=== PATIENT | female | born 1995 | race Caucasian/White ===

== ENCOUNTER 2017-01-08 23:17 | Emergency (ER) | payer MEDICAID ==
[~2017-01-08] VITALS: Ht 167.6 cm; Wt 105.0 kg
[~2017-01-08 23:17] MED LIST: CYCL-36 PO; IBUP800T23 PO; LORTA5 PO; MIREIUD IU
[2017-01-08 23:18] VITALS: BP 143/79; PULSE 84; RESP 16; TEMP 98.7; O2SAT 98
--- NOTE | 2017-01-08 23:41 | PD ---
HPI Chief Complaint: Injury Time Seen by Provider: 23:41 Travel History International Travel<30 days: No Contact w/Intl Traveler<30days: No Traveled to known affect area: No History of Present Illness HPI 21-year-old right handed female presents to the emergency department for evaluation right hand pain. Patient states she was at setting cages when a baseball hit the dorsal aspect of her right hand. She reports 8 out of 10 right hand pain, exacerbated with flexion and extension of the digits. States that her hand is intermittently feeling numb in the distal digits. She denies any other symptoms at this time. PFSH Past Medical History Asthma: Yes Diminished Hearing: No : 2 Para: 2 Miscarriage: 0 : 0 Past Surgical History Section: Yes (X 2 ) Cholecystectomy: Yes Gynecologic Surgery: Yes ( X 1) Social History Alcohol Use: No Tobacco Use: No Substance Use: No Allergies-Medications (Allergen,Severity, Reaction): Coded Allergies: Citalopram (Verified Allergy, Mild, Hives, 01/08/17) Reported Meds & Prescriptions Reported Meds & Active Scripts Active Ibuprofen 800 Mg Tab 800 Mg PO Q8H PRN Reported Wellbutrin SR 12 HR (Bupropion HCl) 150 Mg Tab 150 Mg PO Q12HR Review of Systems Except as stated in HPI: all other systems reviewed are Neg Physical Exam Narrative GENERAL: Well-nourished, well-developed female patient no acute distress SKIN: Focused skin assessment warm/dry. Ecchymosis noted on the dorsal aspect of the right hand mostly between the first and second digits. HEAD: Normocephalic. EYES: No scleral icterus. No injection or drainage. NECK: Supple, trachea midline. No JVD or lymphadenopathy. CARDIOVASCULAR: Regular rate and rhythm without murmurs, gallops, or rubs. RESPIRATORY: Breath sounds equal bilaterally. No accessory muscle use. MUSCULOSKELETAL: No cyanosis, mild edema of the dorsal right hand. Patient is reluctant to make a fist and straighten however she is able to do this. Cap refill is within normal limits. Distal pulses are palpable. BACK: Nontender without obvious deformity. No CVA tenderness. Data Data Last Documented VS Vital Signs Date Time Temp Pulse Resp B/P Pulse Ox O2 Delivery O2 Flow Rate FiO2 01/08/17 23:18 98.7 84 16 143/79 98 Room Air Orders Hand, Complete ([id number]) (01/08/17 ) ^ Paul Bandage (01/09/17 00:26) MDM Medical Decision Making Medical Screen Exam Complete: Yes Emergency Medical Condition: Yes Medical Record Reviewed: Yes Differential Diagnosis Hand contusion versus sprain versus fracture versus dislocation Narrative Course 21-year-old female presents to emergency department for evaluation right hand pain after a cut crushed by a baseball at a batting cage. X-ray imaging shows no acute bony abnormality. Patient is placed in an Paul wrap and counseled on symptom control and care. She agrees to return immediately with any acute worsening symptoms. Diagnosis Primary Impression: Contusion of right hand including fingers Qualified Code: S60.221A - Contusion of right hand including fingers, initial encounter Referrals: Primary Care Physician Patient Instructions: Contusion in Adults (ED), General Instructions Departure Forms: Tests/Procedures, Work Release Enter return to work date: January 10, 2017 Additional Instructions: Ice and elevate to reduce pain and swelling PAUL wrap for compression and comfort Follow up with your primary care provider Return to ED with acute worsening of symptoms Med/Other Pt SpecificInfo: Prescription(s) given Scripts Ibuprofen 800 Mg Yrh123 Mg PO Q8H PRN (Pain/Inflammation) #30 TAB Ref 0 Prov:Porsche Hunt 01/09/17 Disposition: 01 DISCHARGE HOME Condition: Stable Porsche Hunt January 08, 2017 23:41
[2017-01-08] MEDS ORDERED: BUPR150CR PO (23:46)
--- NOTE | 2017-01-09 00:07 | RADRPT ---
EXAM DATE/TIME: 01/08/2017 23:58 [facility] COMPARISON: No previous studies available for comparison. INDICATIONS : Right hand pain from being hit with a baseball. MEDICAL HISTORY : None. SURGICAL HISTORY : None. ENCOUNTER: Initial ACUITY: 1 day PAIN SCORE: 10/10 LOCATION: Right hand FINDINGS: Three view examination of the right hand demonstrates no soft tissue swelling, dislocation, or fractu re. The carpal bones appear intact. The interphalangeal and metacarpophalangeal joints are intact. Bony mineralization is normal. CONCLUSION: Normal examination for a patient of this age. Lenard Villegas MD on January 09, 2017 at 0:05 Board Certified Radiologist. This report was verified electronically.
[2017-01-09] MEDS ORDERED: IBUP800T23 PO (00:28)
== END 2017-01-09 00:50 | disposition home or self-care (01) ==
LOC: NEPD 23:17
DX: S60.221A Contusion of right hand, initial encounter (principal); J45.909 Unspecified asthma, uncomplicated; W21.03XA Struck by baseball, initial encounter; Y93.64 Activity, baseball; Y92.39 Other specified sports and athletic area as the place of occurrence of the external cause; Y99.8 Other external cause status
CPT/HCPCS: 73130; 99283

== ENCOUNTER 2017-11-21 12:07 | Emergency (ER) | payer MEDICAID ==
[~2017-11-21] VITALS: Ht 167.6 cm; Wt 111.8 kg
[~2017-11-21 12:07] MED LIST changes: -CYCL-36 PO; -IBUP800T23 PO; +LEVO25TA4 PO; -LORTA5 PO; +METR-1 PO; -MIREIUD IU
[2017-11-21 12:25] VITALS: BP 162/70; PULSE 84; RESP 18; TEMP 98.4; O2SAT 100
[2017-11-21 13:34] LABS: AUTOMATED NEUTROPHIL # 5.4 TH/MM3 (1.8-7.7); BASOPHIL % 0.6 % (0.0-2.0); EOSINOPHIL # 0.1 TH/MM3 (0-0.4); EOSINOPHIL % 1.7 % (0.0-4.0); HEMATOCRIT 40.2 % (35.0-46.0); HEMOGLOBIN 13.7 GM/DL (11.6-15.3); LYMPH % 23.3 % (9.0-44.0); LYMPHOCYTE # 1.8 TH/MM3 (1.0-4.8); MEAN CELL VOLUME 84.2 FL (80.0-100.0); MEAN CORPUSCULAR HEMOGLOBIN 28.6 PG (27.0-34.0); MEAN PLATELET VOLUME 7.7 FL (7.0-11.0); MONO % 6.3 % (0.0-8.0); MONOCYTE # 0.5 TH/MM3 (0-0.9); NEUT % 68.1 % (16.0-70.0); PLATELET COUNT 234 TH/MM3 (150-450); RED BLOOD COUNT 4.77 MIL/MM3 (4.00-5.30); RED CELL DISTRIBUTION WIDTH 13.9 % (11.6-17.2); WHITE BLOOD COUNT 7.9 TH/MM3 (4.0-11.0)
[2017-11-21 13:57] LABS: BILIRUBIN, URINE NEG (NEG); BLOOD, URINE NEG (NEG); GLUCOSE,URINE NEG (NEG); KETONE, URINE NEG (NEG); MUCUS URINE FEW /lpf (OCC); NITRITE,URINE NEG (NEG); PH, URINE 6.5 (5.0-8.5); SQUAMOUS EPITHELIAL CELL URINE <1 /hpf (0-5); URINE COLOR YELLOW (YELLW/STRAW); URINE LEUKOCYTE ESTERASE NEG (NEG)
[2017-11-21 13:59] LABS: BICARBONATE 22.8 MEQ/L (21.0-32.0); CALCIUM 8.6 MG/DL (8.5-10.1); CREATININE 0.67 MG/DL (0.50-1.00)
[2017-11-21] MEDS ORDERED: LEVO50TA4 PO (14:28)
--- NOTE | 2017-11-21 15:53 | RADRPT ---
EXAM DATE/TIME: 11/21/2017 14:33 [facility] COMPARISON: No previous studies available for comparison. INDICATIONS : Bleeding with . LAB(S): Beta-hC,759 MEDICAL HISTORY : . Hypothyroidism. Asthma. Ovarian cysts. Spontaneous . SURGICAL HISTORY : section. Cholecystectomy. ENCOUNTER: Initial ACUITY: 1 day PAIN SCORE: 2/10 LOCATION: Bilateral pelvis MEASUREMENTS: UTERUS: 10.2 x 5.4 x 6.9 cm ENDOMETRIAL STRIPE: 16 mm RIGHT OVARY: 3.1 x 2.7 x 3.0 cm LEFT OVARY: 2.2 x 1.7 x 1.3 cm cm FREE FLUID: No free fluid CROWN RUMP LENGTH: Non visualized. = WKS DAYS FHR: Not detected FINDINGS: There are 2 gestational sacs measuring less than 5 weeks with yolk sacs identified. No pole is seen. A small right ovarian cyst characteristic of an corpus luteum cyst is present. No adnexal leanna s are identified. No free fluid is identified. CONCLUSION: 1. Findings characteristic of twin intrauterine less than 5 weeks. Followup ultrasound exam ination in 7-10 days is recommended Herb Valles MD on November 21, 2017 at 15:32 Board Certified Radiologist. This report was verified electronically.
--- NOTE | 2017-11-21 16:10 | PD ---
HPI Chief Complaint: Related Problem Time Seen by Provider: 14:09 Travel History International Travel<30 days: No Contact w/Intl Traveler<30days: No Traveled to known affect area: No History of Present Illness HPI Patient is a 22 year old female, approximately 4-5 weeks who comes in due to vaginal spotting. She says yesterday she noticed a little bit of bleeding and today has only noticed when she urinates. She says she has some cramping to her RLQ, where she knows she has an ovarian cyst. She had a previous miscarriage in July around 5-6 weeks and has 2 healthy children. She denies dizziness, SOB, chest pain. Severity is mild to moderate. PFSH Past Medical History Asthma: Yes Diminished Hearing: No Immunizations Current: Yes ?: : 3 Para: 2 Miscarriage: 0 : 0 Past Surgical History Section: Yes (X 2 ) Cholecystectomy: Yes Gynecologic Surgery: Yes ( X 1) Social History Alcohol Use: No Tobacco Use: No Substance Use: No Allergies-Medications (Allergen,Severity, Reaction): Coded Allergies: citalopram (Unverified Allergy, Mild, Hives, 11/21/17) Penicillins (Verified Allergy, Unknown, 11/21/17) Reported Meds & Prescriptions Reported Meds & Active Scripts Active Reported Levothyroxine (Levothyroxine Sodium) 50 Mcg Tab 50 Mcg PO DAILY Review of Systems Except as stated in HPI: all other systems reviewed are Neg General / Constitutional: No: Fever, Chills HENT: No: Headaches, Lightheadedness Cardiovascular: No: Chest Pain or Discomfort Respiratory: No: Shortness of Breath Gastrointestinal: No: Nausea, Vomiting Genitourinary: Positive: Vaginal Bleeding Skin: No Rash Neurologic: No: Weakness, Dizziness Physical Exam Narrative GENERAL: Awake and alert, no acute distress. SKIN: Focused skin assessment warm/dry. No wounds or signs of infection. HEAD: Atraumatic. Normocephalic. EYES: Pupils equal and round. No scleral icterus. ENT: No nasal bleeding or discharge. Mucous membranes pink and moist. NECK: Trachea midline. No JVD. CARDIOVASCULAR: Regular rate and rhythm. No murmur appreciated. RESPIRATORY: No accessory muscle use. Clear to auscultation. Breath sounds equal bilaterally. GASTROINTESTINAL: Abdomen soft, non-tender, nondistended. MUSCULOSKELETAL: No obvious deformities. No clubbing. No cyanosis. No edema. NEUROLOGICAL: Awake and alert. No obvious cranial nerve deficits. Motor grossly within normal limits. Normal speech. PSYCHIATRIC: Appropriate mood and affect; insight and judgment normal. Data Data Last Documented VS Vital Signs Date Time Temp Pulse Resp B/P (MAP) Pulse Ox O2 Delivery O2 Flow Rate FiO2 11/21/17 12:25 98.4 84 18 162/70 (100) 100 Orders Orders Beta Hcg (Quant/Titer) (11/21/17 12:27) Complete Blood Count With Diff (11/21/17 12:27) Basic Metabolic Panel (Bmp) (11/21/17 12:27) Urinalysis - C+S If Indicated (11/21/17 12:27) Ed Urine Pregnancytest Poc (11/21/17 12:27) Us Pelvis (Ques Pr/Ect)W Trans (11/21/17 ) Labs Laboratory Tests Test 11/21/17 13:18 White Blood Count 7.9 TH/MM3 Red Blood Count 4.77 MIL/MM3 Hemoglobin 13.7 GM/DL Hematocrit 40.2 % Mean Corpuscular Volume 84.2 FL Mean Corpuscular Hemoglobin 28.6 PG Mean Corpuscular Hemoglobin Concent 34.0 % Red Cell Distribution Width 13.9 % Platelet Count 234 TH/MM3 Mean Platelet Volume 7.7 FL Neutrophils (%) (Auto) 68.1 % Lymphocytes (%) (Auto) 23.3 % Monocytes (%) (Auto) 6.3 % Eosinophils (%) (Auto) 1.7 % Basophils (%) (Auto) 0.6 % Neutrophils # (Auto) 5.4 TH/MM3 Lymphocytes # (Auto) 1.8 TH/MM3 Monocytes # (Auto) 0.5 TH/MM3 Eosinophils # (Auto) 0.1 TH/MM3 Basophils # (Auto) 0.0 TH/MM3 CBC Comment DIFF FINAL Differential Comment Urine Color YELLOW Urine Turbidity CLEAR Urine pH 6.5 Urine Specific [place] 1.022 Urine Protein NEG mg/dL Urine Glucose (UA) NEG mg/dL Urine Ketones NEG mg/dL Urine Occult Blood NEG Urine Nitrite NEG Urine Bilirubin NEG Urine Urobilinogen 2.0 MG/DL Urine Leukocyte Esterase NEG Urine WBC 1 /hpf Urine Squamous Epithelial Cells <1 /hpf Urine Mucus FEW /lpf Microscopic Urinalysis Comment CULT NOT INDICATED Blood Urea Nitrogen 8 MG/DL Creatinine 0.67 MG/DL Random Glucose 101 MG/DL Calcium Level 8.6 MG/DL Sodium Level 139 MEQ/L Potassium Level 3.7 MEQ/L Chloride Level 107 MEQ/L Carbon Dioxide Level 22.8 MEQ/L Anion Gap 9 MEQ/L Estimat Glomerular Filtration Rate 109 ML/MIN Human Chorionic Gonadotropin, Quant 1759 MIU/ML MDM Medical Decision Making Medical Screen Exam Complete: Yes Emergency Medical Condition: Yes Medical Record Reviewed: Yes Differential Diagnosis Threatened versus completed versus UTI Narrative Course Patient is a 22-year-old female comes in complaining of vaginal bleeding and . Labs sent show beta hCG to be 1759. Patient is Rh+ per old blood work in the computer. Ultrasound performed shows twin gestation in about 4 weeks. Advised repeat ultrasound in 7-10 days. Patient advised of the results. She is advised to return in 2 days to have her beta hCG rechecked. Advised to follow-up with her OB for the repeat ultrasound. She says she has an appointment next Tuesday. Last 24 hours Impressions Pelvis Ultrasound 11/21/17 0000 Signed Impressions: Service Date/Time: Tuesday, November 21, 2017 14:33 - CONCLUSION: 1. Findings characteristic of twin intrauterine less than 5 weeks. Followup ultrasound examination in 7-10 days is recommended Herb Valles MD Advised return anytime for any worsening symptoms. Diagnosis Primary Impression: Threatened Patient Instructions: General Instructions, Threatened Miscarriage (ED) Additional Instructions: Have your hormone repeated in 2 days, today your beta hCG was 1759. Follow-up for repeat ultrasound in 7-10 days. Return anytime for any worsening symptoms. Disposition: 01 DISCHARGE HOME Condition: Stable Lala Hodges MD Nov 21, 2017 16:10
== END 2017-11-21 17:11 | disposition home or self-care (01) ==
LOC: NEPD 12:07
DX: O20.0 Threatened abortion (principal); Z3A.01 Less than 8 weeks gestation of pregnancy
CPT/HCPCS: 76700; 76817; 80048; 81001; 84702; 84703; 85025

== ENCOUNTER 2017-11-23 09:04 | Emergency (ER) | payer MEDICAID ==
[~2017-11-23] VITALS: Ht 167.6 cm; Wt 110.0 kg
[~2017-11-23 09:04] MED LIST changes: -LEVO25TA4 PO; +LEVO50TA4 PO; -METR-1 PO
[2017-11-23 09:09] VITALS: BP 108/57; PULSE 86; RESP 16; TEMP 97.6; O2SAT 99
[2017-11-23] MEDS ORDERED: SE-NCHW CHEW (09:42)
--- NOTE | 2017-11-23 10:41 | PD ---
HPI Chief Complaint: Medical Clearance Time Seen by Provider: 09:24 Travel History International Travel<30 days: No Contact w/Intl Traveler<30days: No Traveled to known affect area: No History of Present Illness HPI 22-year-old female arrives requesting a repeat beta hCG. She was seen here 2 days prior following vaginal bleeding. She has had no bleeding in the interim. She follows up with Dr. Childers in [place] on December 06, 2012 days from today. No additional complaint. Last menstruation was 10/11/2017, 6 weeks prior. PFSH Past Medical History Asthma: Yes Depression: Yes (POST-) Diminished Hearing: No Genitourinary: Yes Kidney Stones: Yes Psychiatric: Yes Respiratory: Yes Immunizations Current: Yes Thyroid Disease: Yes ?: LMP: 10/11/17 : 4 Para: 2 Miscarriage: 1 : 0 Past Surgical History Section: Yes (X 2 ) Cholecystectomy: Yes Genitourinary Surgery: Yes (LITHOTRIPSY) Gynecologic Surgery: Yes ( X 1) Social History Alcohol Use: No Tobacco Use: No Substance Use: No Allergies-Medications (Allergen,Severity, Reaction): Coded Allergies: citalopram (Unverified Allergy, Mild, Hives, 11/23/17) Penicillins (Verified Allergy, Unknown, 11/23/17) Reported Meds & Prescriptions Reported Meds & Active Scripts Active Reported Se-Dante 19 29-1 mg Chew ( Vit W/ Ferrous Fumara Chew) 1 Chew 1 Tab CHEW DAILY Levothyroxine (Levothyroxine Sodium) 50 Mcg Tab 50 Mcg PO DAILY Review of Systems General / Constitutional: No: Fever Eyes: No: Blurred Vision HENT: No: Lightheadedness Physical Exam Narrative GENERAL: 22-year-old female pleasant well-nourished well-developed Vital Signs Date Time Temp Pulse Resp B/P (MAP) Pulse Ox O2 Delivery O2 Flow Rate FiO2 11/23/17 09:09 97.6 86 16 108/57 (74) 99 SKIN: Warm and dry. HEAD: Normocephalic. EYES: No scleral icterus. No injection or drainage. NECK: Supple, trachea midline. No JVD or lymphadenopathy. CARDIOVASCULAR: Regular rate and rhythm without murmurs, gallops, or rubs. RESPIRATORY: Breath sounds equal bilaterally. No accessory muscle use. GASTROINTESTINAL: Abdomen soft, non-tender, nondistended. MUSCULOSKELETAL: No cyanosis, or edema. BACK: Nontender without obvious deformity. No CVA tenderness. Data Data Last Documented VS Vital Signs Date Time Temp Pulse Resp B/P (MAP) Pulse Ox O2 Delivery O2 Flow Rate FiO2 11/23/17 09:09 97.6 86 16 108/57 (74) 99 Orders Orders Beta Hcg (Quant/Titer) (11/23/17 09:24) Ed Discharge Order (11/23/17 10:56) Labs Laboratory Tests Test 11/23/17 09:50 Human Chorionic Gonadotropin, Quant 3017 MIU/ML MDM Medical Decision Making Medical Screen Exam Complete: Yes Emergency Medical Condition: Yes Medical Record Reviewed: Yes Differential Diagnosis IUP, UTI, ectopic , ov torsion, appendicitis, TOA, cervicitis, BV, Trichomoniasis, ov cyst, hernia, mittelschmerz, pain from menstruation Narrative Course Beta hCG from the second was 1759 Ultrasound at that time revealed likely twin gestation.. Repeat Beta 3017 Diagnosis Primary Impression: Intrauterine Referrals: [facility] 2 days Med/Other Pt SpecificInfo: Prescription(s) given Disposition: 01 DISCHARGE HOME Condition: Stable Yanick Yap MD Nov 23, 2017 10:41
== END 2017-11-23 11:12 | disposition home or self-care (01) ==
LOC: NEPD 09:04
DX: O46.90 Antepartum hemorrhage, unspecified, unspecified trimester (principal); Z3A.00 Weeks of gestation of pregnancy not specified
CPT/HCPCS: 84702; 99281